=== PATIENT | female | born 1950 | race Caucasian/White ===

== ENCOUNTER 2020-07-16 10:21 | Outpatient (REF) | payer OTHER, SELFPAY ==
[2020-07-16 11:00] LABS: COVID-19 Test Negative (Negative); IDNOW Serial# 55D5AD1C
== END 2020-07-16 10:22 | disposition home or self-care (01) ==
LOC: HO.EMPCOV 10:21
PROVIDERS: PCP Internal Medicine; Visit Provider Internal Medicine
DX: Z20.828 Contact with and (suspected) exposure to other viral communicable diseases (principal)
CPT/HCPCS: 87635; C9803

== ENCOUNTER 2020-07-24 19:57 | Emergency (ER) | payer MEDICARE, SELFPAY ==
--- NOTE | 2020-07-24 | XR_ITS ---
EXAMINATION: 1. Radiographs right shoulder 2. Radiographs right wrist CLINICAL INFORMATION: Pain after fall COMPARISON: None TECHNIQUE: 4 views of the right shoulder and 3 views of the right wrist were obtained. FINDINGS: Right shoulder: Visualized portions of the proximal right humerus demonstrate no fracture. Humeral head demonstrates good articulation with the glenoid fossa. There are mild degenerative changes of the acromioclavicular joint. Visualized ribs and lung parenchyma are unremarkable. Right wrist: Visualized portion of the distal radius and ulna demonstrate no fracture. Carpal rows are well-maintained. No carpal bone fracture. Mild degenerative changes of the first carpal metacarpal joint. No metacarpal or phalangeal fracture. Moderate to severe degenerative changes of the DIP joints diffusely. The PIP and MCP joints demonstrate only minimal degenerative changes diffusely. XR/XR hand wrist RT IMPRESSION: 1. Mild degenerative changes of the right shoulder without fracture or dislocation. 2. No fracture of the right wrist or hand. 3. Moderate to severe degenerative changes of the DIP joints diffusely. Mild degenerative changes of the first carpal metacarpal joint is also noted.
--- NOTE | 2020-07-24 | XR_ITS ---
EXAMINATION: 1. Radiographs right shoulder 2. Radiographs right wrist CLINICAL INFORMATION: Pain after fall COMPARISON: None TECHNIQUE: 4 views of the right shoulder and 3 views of the right wrist were obtained. FINDINGS: Right shoulder: Visualized portions of the proximal right humerus demonstrate no fracture. Humeral head demonstrates good articulation with the glenoid fossa. There are mild degenerative changes of the acromioclavicular joint. Visualized ribs and lung parenchyma are unremarkable. Right wrist: Visualized portion of the distal radius and ulna demonstrate no fracture. Carpal rows are well-maintained. No carpal bone fracture. Mild degenerative changes of the first carpal metacarpal joint. No metacarpal or phalangeal fracture. Moderate to severe degenerative changes of the DIP joints diffusely. The PIP and MCP joints demonstrate only minimal degenerative changes diffusely. XR/XR shoulder RT min 2V IMPRESSION: 1. Mild degenerative changes of the right shoulder without fracture or dislocation. 2. No fracture of the right wrist or hand. 3. Moderate to severe degenerative changes of the DIP joints diffusely. Mild degenerative changes of the first carpal metacarpal joint is also noted.
[2020-07-24 20:41] VITALS: BP 119/84; PULSE 98; RESP 18; TEMP 36.7; O2SAT 99; BMI 32.9
--- NOTE | 2020-07-24 21:56 | ED.FALL ---
HPI - Fall General Chief Complaint: Fall Stated Complaint: Fall Time Seen by Provider: 07/24/20 21:51 Source: patient Mode of arrival: ambulatory Limitations: no limitations History of Present Illness complaint: fall Onset (ago): minute(s) (just [employer]) Fall from: standing Fall witnessed: yes, by family Place fall occurred: home Loss of consciousness: none Symptoms prior to fall: none Context: tripped/slipped Location of injury - extremities: right: shoulder and hand Severity: mild Quality: dull Associated symptoms (after fall): other (laceration on middle finger R hand anterior proximal phalanx) Related Data Previous Rx's Medication Instructions Recorded hydrocodone-acetaminophen 1 tab PO Q6H PRN #12 tab 07/24/20 Allergies Allergy/AdvReac Type Severity Reaction Status Date / Time penicillin V Allergy Unknown Unknown Verified 07/24/20 22:04 Penicillins [PENICILLINS] Allergy Unknown HIVES Verified 07/24/20 22:04 Cortisone Allergy Unknown sensitivity Uncoded 12/18/16 00:00 Review of Systems Review of Systems: Constitutional : No Fever, No Chills, Cardiovascular : No Chest Pain, No SOB Respiratory : No Dyspnea Gastrointestinal : No abdominal pain Musculoskeletal : No Joint Swelling, positive joint pain Skin : No rash, positive skin laceration Neuro : No Weakness, No Numbness Psych : No SI/HI PMFSH Past Medical History Attestation statement: The following information was validated with the patient. Medical History Arthritis High cholesterol Hypertension Hyperthyroidism Social History Social History (Updated 07/24/20 @ 22:01 by Jodie Gutierrez DO) Smoking Status: Never smoker Advance Directives: No Advance Directives Information Provided: Yes Physical Exam Vital Signs: Vital Signs: Last Vital Signs Temp 98.1 F 07/24/20 20:41 Pulse 98 07/24/20 20:41 Resp 18 07/24/20 20:41 BP 119/84 07/24/20 20:41 Pulse Ox 99 07/24/20 20:41 Body Mass Index 32.9 Appearance: Alert. Oriented X3. No acute distress. Eyes: Pupils equal, round and reactive to light. ENT: Pharynx normal. Neck: Normal inspection. Neck supple. CVS: Normal heart rate and rhythm. Pulses normal. Respiratory: No respiratory distress. Breath sounds normal. Abdomen: Soft and nontender. Skin: Skin warm and dry. Normal skin color. Normal skin turgor. Extremities: No lower extremity edema. No calf ttp Full ROM of RUE, laceration 3cm R middle finger superficial proximal phalanx, distal NV intact, very superficial Neuro: Oriented X 3. No motor deficit. No sensory deficit. Course Course Course Narrative: after ring removal and nerve block better ROM Procedures Laceration Laceration 1: Site: hand (middle finger) Side (If applicable): right Size (cm): 3 Description: linear Depth: simple, single layer Local Anesthetic: lidocaine 1% and lidocaine 2% Amount of anesthesia used (mL): 3 Pre-repair: wound explored and irrigated extensively Skin layer closed with: nylon Size (cm): 5-0 Number of sutures: 5 Technique: simple, interrupted MDM - Fall MDM Narrative Medical decision making narrative: 70 yo female with mechanical fall c/o MSk pain to RUE full ROM - has laceration that is superficial I do not think she has tendon injury she is R hand dominant will need ring removal as well Discharge Plan Discharge Clinical Impression: Laceration Strain of right shoulder Qualifiers: Encounter type: initial encounter Qualified Code(s): S46.911A - Strain of unspecified muscle, fascia and tendon at shoulder and upper arm level, right arm, initial encounter Patient Disposition: Home, Self-Care Instructions: Laceration (ED) Additional Instructions: return to ED for any worsening symptoms or concerns take splint off after 4 days it is to protect wound Prescriptions: New hydrocodone-acetaminophen 5-325 mg tablet 1 tab PO Q6H PRN (Reason: pain) Qty: 12 RF: 0 Referrals: Kayla Bliss MD [Physician] - 1 week (if finger feels stiff and limited mobility though no tendon injury evident) Stand Alone Forms: Work/School Release
[2020-07-24] MEDS: Lidocaine HCl 2 % MPF 5 ML VIAL SUBCUT (22:32)
== END 2020-07-24 22:46 | disposition home or self-care (01) ==
PROVIDERS: Emergency Provider Emergency Medicine; PCP Internal Medicine
DX: S61.212A Laceration without foreign body of right middle finger without damage to nail, initial encounter (principal); S46.911A Strain of unspecified muscle, fascia and tendon at shoulder and upper arm level, right arm, initial encounter; W01.0XXA Fall on same level from slipping, tripping and stumbling without subsequent striking against object, initial encounter; I10 Essential (primary) hypertension; Y93.89 Activity, other specified; Y92.010 Kitchen of single-family (private) house as the place of occurrence of the external cause; Y99.9 Unspecified external cause status
CPT/HCPCS: 12002; 73030; 73110; 73130; 90471; 90715; 99283; 99284

== ENCOUNTER 2020-09-13 15:24 | Outpatient (REF) | payer MEDICARE, SELFPAY ==
--- NOTE | ~2020-09-13 | MM_ITS ---
EXAMINATION: MM SCREENING DIGITAL BREAST TOMOSYNTHESIS, BILATERAL CLINICAL INFORMATION: Screening. Asymptomatic. The lifetime risk of breast cancer based on the Tyrer-Cuzick Model is 5%. COMPARISON: Mammography: 10/28/2018, 08/10/2017, 05/08/2016 TECHNIQUE: Digital breast tomosynthesis is performed in both the craniocaudal and mediolateral oblique views along with computer-aided detection (CAD). Synthesized 2D images are generated from the tomosynthesis. FINDINGS: There are scattered areas of fibroglandular density (ACR BI-RADS breast composition Category b). There are no significant masses, abnormal calcifications, or other abnormalities. Parenchymal pattern is similar to prior studies. No significant changes. MM/MM tomosynthesis screening BI IMPRESSION: No mammographic evidence of malignancy. ASSESSMENT: BI-RADS 1: Negative RECOMMENDATION: Routine annual mammography screening. This patient's information was entered into a reminder system with a target due date for their next mammogram.
== END 2020-09-13 15:25 | disposition home or self-care (01) ==
LOC: HO.MAMMO 15:24
PROVIDERS: PCP Internal Medicine; Visit Provider Internal Medicine
DX: Z12.31 Encounter for screening mammogram for malignant neoplasm of breast (principal)
CPT/HCPCS: 77063; 77067

== ENCOUNTER 2020-11-15 08:07 | Outpatient (REF) | payer OTHER, SELFPAY ==
[2020-11-15 08:28] LABS: COVID-19 Test Negative (Negative)
== END 2020-11-15 08:08 | disposition home or self-care (01) ==
LOC: HO.EMPCOV 08:07
PROVIDERS: Visit Provider Internal Medicine
DX: Z20.822 Contact with and (suspected) exposure to COVID-19 (principal)
CPT/HCPCS: 36415; 87635; C9803

== ENCOUNTER 2020-11-19 12:56 | Outpatient (REF) | payer OTHER, SELFPAY ==
[2020-11-19 13:29] LABS: COVID-19 Test Negative (Negative)
== END 2020-11-19 12:57 | disposition home or self-care (01) ==
LOC: HO.EMPCOV 12:56
PROVIDERS: Visit Provider Internal Medicine
DX: Z20.822 Contact with and (suspected) exposure to COVID-19 (principal)
CPT/HCPCS: 36415; 87635; C9803

== ENCOUNTER 2020-12-02 07:56 | Outpatient (REF) | payer MEDICARE, SELFPAY ==
[2020-12-02 11:28] LABS: Appearance Urine CLOUDY; Color Urine YELLOW; Glucose Urine UA NEG (NEG); Leukocyte Esterase Urine NEG (NEG); Nitrite Urine NEG (NEG); Specific Gravity - Urine >= 1.030 (1.005-1.025); Urine Blood NEG (NEG); Urine Ketones NEG (NEG); Urine Protein NEG (NEG-TRACE)
[2020-12-02 11:47] LABS: Hematocrit 43.8 % (37-47); Hemoglobin 14.6 g/dl (12.0-16.0); Mean Corpuscular HGB Conc 33.3 g/dl (31.0-35.0); Mean Corpuscular Hemoglobin 31.3 pg (27.0-33.0); Mean Corpuscular Volume 93.8 fL (80-98); Mean Platelet Volume 10.9 fL (9.4-12.3); Platelet Count 251 X10*3/uL (160-400); Red Blood Count 4.67 X10*6/uL (4.20-5.50); Red Cell Distribution Width 12.1 % (11.0-16.0); White Blood Count 5.5 X10*3/uL (4.8-10.8)
[2020-12-02 11:53] LABS: Alanine Aminotransferase 25 U/L (0-31); Albumin Level 4.3 g/dL (3.5-5.0); Alkaline Phosphatase 75 U/L (39-117); Anion Gap 14 (12-20); Aspartate Amino Transferase 21 U/L (5-31); Bilirubin Total 1.2 mg/dL (0.0-1.0); Blood Urea Nitrogen 25 mg/dL (9-16); C Reactive Protein 0.53 mg/dL (< or = 0.50); Calcium 9.7 mg/dL (8.4-10.2); Carbon Dioxide 29 mmol/L (22-29); Chloride 103 mmol/L (96-108); Cholesterol 200 mg/dL; Estimated Glomerular Filt Rate 60; Glucose Fasting 109 mg/dL (60-99); HDL Cholesterol 54 mg/dL; LDL Cholesterol Calculated 128 mg/dl; Potassium 4.3 mmol/L (3.3-5.1); Rheumatoid Factor < 15.0 IU/mL (<15.0); Sodium 142 mmol/L (135-145); Total Protein 6.9 g/dL (6.5-8.0); Triglycerides 94 mg/dL
[2020-12-02 12:15] LABS: Free T4 (Free Thyroxine) 0.98 ng/dL (0.71-1.85); Thyroid Stimulating Hormone 1.46 uIU/mL (0.32-4.0); Vitamin D 25-OH Total 28.5 ng/mL (>30)
[2020-12-05 13:46] LABS: Anti Nuclear Antibody Screen NEGATIVE (NEGATIVE)
== END 2020-12-02 07:57 | disposition home or self-care (01) ==
LOC: HO.HMGCLDS 07:56
PROVIDERS: PCP Internal Medicine; Visit Provider Internal Medicine
DX: Z00.00 Encounter for general adult medical examination without abnormal findings (principal); E78.00 Pure hypercholesterolemia, unspecified; I10 Essential (primary) hypertension; E03.9 Hypothyroidism, unspecified; M19.90 Unspecified osteoarthritis, unspecified site
CPT/HCPCS: 36415; 80053; 80061; 81003; 82306; 84439; 84443; 85027; 86038; 86039; 86140; 86431

== ENCOUNTER 2021-01-23 10:29 | Outpatient (REF) | payer MEDICARE, SELFPAY ==
--- NOTE | ~2021-01-23 | MM_ITS ---
EXAMINATION: BONE DENSITOMETRY CLINICAL INDICATION: Screening for osteoporosis. COMPARISON: Previous BD dated 11/15/2012 and baseline BD dated 05/16/2008. TECHNIQUE: Using a [employer] DXA System (software version: 13.1) manufactured by [employer], dual-energy x-ray absorptiometry was performed of the lumbar spine and left hip. The images are of good technical quality. Summary results are attached. FINDINGS: AP SPINE L1-L2 (excluding L3 and L4): The data of L1-L4 has been changed to exclude the L3 and L4 vertebral bodies, because degenerative sclerosis at these levels may cause overestimation of lumbar spine density. Current: BMD 1.004 g/cm2, Z-score -0.4, T-score -1.3, osteopenia, 8.3% increase from previous, 3.6% increase from baseline (<5% change is not significant). Prior: BMD 0.927 g/cm2. Baseline: BMD 0.969 g/cm2. LEFT FEMUR, NECK: Current: BMD 0.834 g/cm2, Z-score -0.2, T-score -1.5, osteopenia. Prior: BMD 0.898 g/cm2. Baseline: BMD 0.906 g/cm2. LEFT FEMUR, TOTAL: Current: BMD 0.877 g/cm2, Z-score -0.1, T-score -1.0, normal, 5.9% decrease from previous, 4.0% decrease from baseline (<5% change is not significant). Prior: BMD 0.932 g/cm2. Baseline: BMD 0.914 g/cm2. IDENTIFIED RISK FACTORS: Early menopause, secondary osteoporosis, thiazide. HISTORY OF FRACTURE: None listed. MEDICATIONS: Vitamin D. MM/XR DEXA axial skeleton IMPRESSION: 1. DIAGNOSIS: Osteopenia based on the lowest T-score value of -1.5 in the femoral neck applying World Health Organization criteria. 2. 10-YEAR FRACTURE RISK PREDICTION, FRAX: Major osteoporotic fracture (clinical spine, forearm, hip or shoulder) 9.0%. Hip fracture 1.2%. 3. Treatment Recommendations: NOF guidelines recommend consideration for treatment in postmenopausal women and men age 50 and older presenting with the following: -A hip or vertebral (clinical or morphometric) fracture. -T-score less than or equal to -2.5 at the femoral neck or spine after appropriate evaluation to exclude secondary causes. -Low bone mass at the hip or spine and a 10-year fracture probability by FRAX of greater than or equal to 3% for hip fracture or greater than or equal to 20% for major osteoporotic fracture based on the [place] adapted WHO algorithm. 4. Other Recommendations: All treatment decisions require clinical judgment and consideration of individual patient factors, including patient preferences, comorbidities, previous drug use, risk factors not captured in the FRAX model (e.g. frailty, falls, vitamin D deficiency, increased bone turnover, interval significant decline in bone density) and possible under or overestimation of fracture risk by FRAX. Additional medical evaluation for secondary cause of low bone mineral density may be appropriate. FUTURE SCAN RECOMMENDATION: People with diagnosed cases of osteoporosis or at high risk for fracture should have regular bone mineral density tests. For patients eligible for Medicare, routine testing is allowed once every 2 years. The testing frequency can be increased to one year for patients who have rapidly progressing disease, those who are receiving or discontinuing medical therapy to restore bone mass, or have additional risk factors.
== END 2021-01-23 10:30 | disposition home or self-care (01) ==
LOC: HO.MAMMO 10:29
PROVIDERS: Visit Provider Internal Medicine
DX: M81.8 Other osteoporosis without current pathological fracture (principal); Z78.0 Asymptomatic menopausal state; Z79.899 Other long term (current) drug therapy
CPT/HCPCS: 77080

== ENCOUNTER 2021-03-25 14:33 | Outpatient (REF) | payer MEDICARE, SELFPAY ==
[2021-03-25 15:17] LABS: Influenza A PCR NEGATIVE (Negative); Influenza B PCR NEGATIVE (Negative); Resp Syncy Virus RNA Qual PCR NEGATIVE (Negative); SARS COV2 PCR INHOUSE NEGATIVE (Negative)
== END 2021-03-25 14:34 | disposition home or self-care (01) ==
LOC: HO.LNP 14:33
PROVIDERS: Visit Provider Internal Medicine
DX: Z20.822 Contact with and (suspected) exposure to COVID-19 (principal); R50.9 Fever, unspecified; R53.83 Other fatigue; R19.7 Diarrhea, unspecified
CPT/HCPCS: 0241U

== ENCOUNTER 2021-04-01 10:01 | Outpatient (REF) | payer MEDICARE, SELFPAY ==
[2021-04-01 14:19] LABS: Anion Gap 14 (12-20); Blood Urea Nitrogen 19 mg/dL (9-16); Calcium 9.4 mg/dL (8.4-10.2); Carbon Dioxide 27 mmol/L (22-29); Chloride 103 mmol/L (96-108); Estimated Glomerular Filt Rate > 60; Glucose Random 113 mg/dL (60-115); Potassium 4.8 mmol/L (3.3-5.1); Sodium 139 mmol/L (135-145)
[2021-04-01 14:47] LABS: Free T4 (Free Thyroxine) 1.07 ng/dL (0.71-1.85); Thyroid Stimulating Hormone 1.63 uIU/mL (0.32-4.0); Vitamin D 25-OH Total 35.5 ng/mL (>30)
== END 2021-04-01 10:02 | disposition home or self-care (01) ==
LOC: HO.10HDL 10:01
PROVIDERS: Visit Provider Internal Medicine
DX: I12.9 Hypertensive chronic kidney disease with stage 1 through stage 4 chronic kidney disease, or unspecified chronic kidney disease (principal); N18.9 Chronic kidney disease, unspecified; E03.9 Hypothyroidism, unspecified; E55.9 Vitamin D deficiency, unspecified
CPT/HCPCS: 36415; 80048; 82306; 84439; 84443

== ENCOUNTER → 2021-07-09 11:46 | Outpatient (REF) | payer MEDICARE, SELFPAY ==
--- NOTE | 2021-07-09 11:55 | ECG_ITS ---
Test Reason : HTN Blood Pressure : / mmHG Vent. 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
== END ==
LOC: HO.CARD 11:46
PROVIDERS: PCP Internal Medicine; Visit Provider Orthopaedic Surgery Foot and Ankle Surgery
DX: Z01.812 Encounter for preprocedural laboratory examination (principal); I10 Essential (primary) hypertension; I21.19 ST elevation (STEMI) myocardial infarction involving other coronary artery of inferior wall
CPT/HCPCS: 93005

== ENCOUNTER 2021-10-17 10:03 | Outpatient (REF) | payer MEDICARE, SELFPAY ==
--- NOTE | ~2021-10-17 | MM_ITS ---
EXAMINATION: MM SCREENING DIGITAL BREAST TOMOSYNTHESIS, BILATERAL CLINICAL INFORMATION: Screening. Asymptomatic. The lifetime risk of breast cancer based on the Tyrer-Cuzick Model is 5%. COMPARISON: Mammography: 09/13/2020, 10/28/2018, 08/10/2017 TECHNIQUE: Digital breast tomosynthesis is performed in both the craniocaudal and mediolateral oblique views along with computer-aided detection (CAD). Synthesized 2D images are generated from the tomosynthesis. FINDINGS: There are scattered areas of fibroglandular density (ACR BI-RADS breast composition Category b). There are no significant masses, abnormal calcifications, or other abnormalities. There is no developing density or architectural abnormality. No significant changes. MM/MM tomosynthesis screening BI IMPRESSION: No mammographic evidence of malignancy. ASSESSMENT: BI-RADS 1: Negative RECOMMENDATION: Routine annual mammography screening. This patient's information was entered into a reminder system with a target due date for their next mammogram.
== END 2021-10-17 10:04 | disposition home or self-care (01) ==
LOC: HO.MAMMO 10:03
PROVIDERS: PCP Internal Medicine; Visit Provider Internal Medicine
DX: Z12.31 Encounter for screening mammogram for malignant neoplasm of breast (principal)
CPT/HCPCS: 77063; 77067

== ENCOUNTER 2022-07-28 11:43 | Outpatient (REF) | payer MEDICARE, SELFPAY ==
--- NOTE | ~2022-07-28 | XR_ITS ---
EXAMINATION: XR HIP, RIGHT CLINICAL INFORMATION: Right hip pain. COMPARISON: None TECHNIQUE: Two views of the right hip. FINDINGS: There is no acute fracture or dislocation. The right hip joint and visualized right hemipelvis are intact. Mild to moderate pubic symphysis degenerative joint changes are seen. XR/XR hip RT min 2V IMPRESSION: 1. No significant right hip abnormality.
== END 2022-07-28 11:44 | disposition home or self-care (01) ==
LOC: HO.XRAY 11:43
PROVIDERS: PCP Internal Medicine; Visit Provider Internal Medicine
DX: M25.551 Pain in right hip (principal)
CPT/HCPCS: 73502

== ENCOUNTER 2022-11-06 11:26 | Outpatient (REF) | payer MEDICARE, SELFPAY ==
--- NOTE | ~2022-11-06 | MM_ITS ---
EXAMINATION: MM SCREENING DIGITAL BREAST TOMOSYNTHESIS, BILATERAL CLINICAL INFORMATION: Screening. Asymptomatic. The lifetime risk of breast cancer based on the Tyrer-Cuzick Model is 3.7%. COMPARISON: Mammography: October 17, 2021 and studies dating back to May 08, 2016 TECHNIQUE: Digital breast tomosynthesis is performed in both the craniocaudal and mediolateral oblique views along with computer-aided detection (CAD). Synthesized 2D images are generated from the tomosynthesis. FINDINGS: There are scattered areas of fibroglandular density (ACR BI-RADS breast composition Category b). There are no significant masses, abnormal calcifications, or other abnormalities. MM/MM tomosynthesis screening BI IMPRESSION: No significant changes from prior exam. ASSESSMENT: BI-RADS 1: Negative RECOMMENDATION: Routine annual mammography screening. This patient's information was entered into a reminder system with a target due date for their next mammogram.
== END 2022-11-06 11:27 | disposition home or self-care (01) ==
LOC: HO.MAMMO 11:26
PROVIDERS: PCP Internal Medicine; Visit Provider Internal Medicine
DX: Z12.31 Encounter for screening mammogram for malignant neoplasm of breast (principal)
CPT/HCPCS: 77063; 77067

== ENCOUNTER 2023-08-31 10:26 | Day surgery (SDC) | payer MEDICARE, SELFPAY ==
[2023-08-27 11:41] VITALS: BMI 35.7
--- NOTE | 2023-08-30 09:27 | HO.ANESPROP2 ---
HPI - Anesthesia Eval Consult details Narrative: 73yo F for Upper Endoscopy and Colonoscopy PMFSH Past Medical History Medical History Hypothyroid Hiatal hernia Osteopenia IBS (irritable bowel syndrome) GERD (gastroesophageal reflux disease) Arthritis High cholesterol Hyperthyroidism Hypertension Surgical History Surgical History Hx of knee surgery Hx of repair of right rotator cuff History of esophagogastroduodenoscopy (EGD) H/O colonoscopy Social History Social History (Updated 08/27/23 @ 11:46 by Belgica Weiner RN) Patient Tobacco Use Status: Former Tobacco user Are you DNR?: No Advance Directives: No Advance Directives Information Provided: Yes Nutrition Risks: No Nutritional Risk Meds Allergies Allergy/AdvReac Type Severity Reaction Status Date / Time cortisone Allergy Intermediate sensitivity Verified 08/31/23 10:54 Penicillins [PENICILLINS] Allergy Intermediate Hives Verified 08/31/23 10:54 Home Medications Medication Instructions Recorded Confirmed Last Taken Type levothyroxine 25 mcg tablet 25 mcg PO DAILY 08/27/23 08/27/23 Unknown History lisinopril 10 1 tab PO DAILY 08/27/23 08/27/23 Unknown History mg-hydrochlorothiazide 12.5 mg tablet pantoprazole 40 mg tablet,delayed 40 mg PO BID 08/27/23 08/27/23 Unknown History release rosuvastatin 20 mg tablet 20 mg PO DAILY 08/27/23 08/27/23 Unknown History Exam Height,Weight and Vital Signs: Height 5 ft 1.5 in Weight 87.09 kg Assessment and Plan Assessment Anesthesia Assessment: Chart Reviewed
[2023-08-31 10:39] VITALS: BMI 35.7
[2023-08-31] MEDS: Lactated Ringers 1,000 ML 100 ML IVCONT (10:44)
[2023-08-31 10:55] VITALS: BP 158/81; PULSE 82; RESP 18; TEMP 36.6; O2SAT 96
--- NOTE | 2023-08-31 11:48 | P.HPSUR_ITS ---
Pre-Procedural Eval Section A - 24 Hr Update-Section A only Date of Service: 08/31/23 Section B - Complete if H&P > 30 days Chief Complaint: Gastro-esophageal reflux disease with esophagitis, Details of Present Illness: see H&P no changes Relevant Family History (Specify if Yes): No Relevant Social History: None Present Medications: see Short Stay Collaborative assessment Medical History: No relevant PMH Allergies: Allergies Allergy/AdvReac Type Severity Reaction Status Date / Time cortisone Allergy Intermediate sensitivity Verified 08/31/23 10:54 Penicillins [PENICILLINS] Allergy Intermediate Hives Verified 08/31/23 10:54 Review of Systems Sugical H&P ROS: Negative: Constitution, Cardiovascular, Respiratory, Neurological, Psychiatric, Hem-Onc, Allergic/Immunologic, Gastrointestinal, Genitourinary, Musculoskeletal, Integumentary, Endocrine and Eye s/Ears/Nose/Throat Exam Surgical H&P Exam: Normal: HEENT, Normal: Heart, Normal: Lungs, Normal: Extremities, Normal: Abdomen, Normal: Skin and Normal: Neurological Plan I have reviewed the history and physical and performed a pertinent physical examination on my patient. No changes have occurred unless specified. Time Spent With Patient Time: Total time managing care of this patient today ____ minutes.
[2023-08-31 12:41] VITALS: BP 125/58; PULSE 65; RESP 20; TEMP 36.2; O2SAT 98
[2023-08-31 12:56] VITALS: BP 135/70; PULSE 69; RESP 18; O2SAT 99
[2023-08-31 13:11] VITALS: BP 130/68; PULSE 68; RESP 16; TEMP 36.6; O2SAT 99
--- NOTE | 2023-08-31 13:15 | OP_ITS ---
DATE OF SERVICE: 08/31/2023 SURGEON: Danny Anna MD INDICATIONS: 1. Gastroesophageal reflux disease. 2. Colorectal cancer screening. PREOPERATIVE DIAGNOSIS: POSTOPERATIVE DIAGNOSIS: PROCEDURE PERFORMED: Upper endoscopy with biopsy, colonoscopy to the terminal ileum with biopsy. ESTIMATED BLOOD LOSS: COMPLICATIONS: ANESTHESIA: Monitored anesthesia care. ASSISTANTS: SPECIMENS: DESCRIPTION OF PROCEDURE: A history and physical was performed. The risks and benefits of the procedure were explained to the patient. Informed consent was obtained. The patient was placed in the left lateral decubitus position. The Olympus video gastroscope was introduced into the esophagus, stomach, and duodenum. Examination was performed. The scope was removed. She was repositioned for colonoscopy. A digital rectal exam was performed and was found to be normal. The Olympus pediatric video colonoscope was introduced into the rectum and advanced to the cecum. The cecum was identified by transillumination, palpation, and identification of ileocecal valve. Examination was performed. The scope was removed. She tolerated both procedures well, returned to recovery area in stable condition. FINDINGS: Upper endoscopy: 1. Esophagus the esophagus was normal. There was no esophagitis. The EG junction was slightly irregular. This was biopsied. 2. Stomach: The stomach showed no evidence of masses, ulcers, or polyps. Antral biopsies were obtained to evaluate for H pylori. 3. Duodenum: The bulb and 2nd portion were normal. Colonoscopy: The terminal ileum was examined and appeared normal. The visualized colonic mucosa was normal. The quality of the prep was good. There was a single polyp measuring less than 5 mm, which was removed with biopsy forceps. This was located in the cecum. No other polyps were identified. There was moderate diverticulosis, particularly involving the sigmoid. Retroflexed examination showed small internal hemorrhoids. IMPRESSION: 1. Gastroesophageal reflux disease. 2. Colon polyp. RECOMMENDATION: Follow up the biopsy results. MD TSERING Beckett/LELANDL / [id number]
== END 2023-08-31 13:58 | disposition home or self-care (01) ==
PROVIDERS: PCP Nurse Practitioner Family; Visit Provider Internal Medicine Gastroenterology
PROC: (CPT 45380; principal; 2023-08-31 11:50)
DX: Z12.11 Encounter for screening for malignant neoplasm of colon (principal); K57.30 Diverticulosis of large intestine without perforation or abscess without bleeding; K64.8 Other hemorrhoids; K21.9 Gastro-esophageal reflux disease without esophagitis; E03.9 Hypothyroidism, unspecified; E78.00 Pure hypercholesterolemia, unspecified; K44.9 Diaphragmatic hernia without obstruction or gangrene; K58.9 Irritable bowel syndrome, unspecified; I10 Essential (primary) hypertension; M85.80 Other specified disorders of bone density and structure, unspecified site; E05.90 Thyrotoxicosis, unspecified without thyrotoxic crisis or storm; Z79.899 Other long term (current) drug therapy; Z88.0 Allergy status to penicillin; Z87.891 Personal history of nicotine dependence
CPT/HCPCS: 45380; 43239; 88305; 88313; 88342; J2704

== ENCOUNTER 2023-12-21 06:34 | Day surgery (SDC) | payer MEDICARE, SELFPAY ==
[2023-12-16 13:59] VITALS: BMI 34.9
--- NOTE | 2023-12-17 10:07 | HO.ANESPROP2 ---
HPI - Anesthesia Eval Consult details Narrative: 73yo F for Upper Endoscopy s/p egd and colo 08/2023 with [facility] PMFSH Past Medical History Medical History Hypothyroid Hiatal hernia Osteopenia IBS (irritable bowel syndrome) GERD (gastroesophageal reflux disease) Arthritis High cholesterol Hyperthyroidism Hypertension Surgical History Surgical History Hx of knee surgery Hx of repair of right rotator cuff History of esophagogastroduodenoscopy (EGD) H/O colonoscopy Social History Social History Patient Tobacco Use Status: Former Tobacco user Meds Allergies Allergy/AdvReac Type Severity Reaction Status Date / Time cortisone Allergy Intermediate sensitivity Verified 08/31/23 10:54 Penicillins [PENICILLINS] Allergy Intermediate Hives Verified 08/31/23 10:54 Home Medications ?Medication ?Instructions ?Recorded ?Confirmed ?Last Taken ?Type levothyroxine 25 mcg tablet 25 mcg PO DAILY 08/27/23 12/16/23 Unknown History lisinopril 10 1 tab PO DAILY 08/27/23 12/16/23 Unknown History mg-hydrochlorothiazide 12.5 mg tablet pantoprazole 40 mg tablet,delayed 40 mg PO BID 08/27/23 12/16/23 Unknown History release rosuvastatin 20 mg tablet 20 mg PO DAILY 08/27/23 12/16/23 Unknown History Exam Height,Weight and Vital Signs: Height 5 ft 1.5 in Weight 85.275 kg Assessment and Plan Assessment Anesthesia Assessment: Chart Reviewed
[2023-12-21 06:38] VITALS: BP 124/60; PULSE 74; RESP 18; TEMP 36.1; O2SAT 97; BMI 34.6
[2023-12-21] MEDS: Lactated Ringers 1,000 ML 100 ML IVCONT (07:02)
[2023-12-21 07:55] VITALS: BP 117/67; PULSE 65; RESP 16; TEMP 36.1; O2SAT 95
--- NOTE | 2023-12-21 07:58 | P.HPSUR_ITS ---
Pre-Procedural Eval Section A - 24 Hr Update-Section A only Date of Service: 12/21/23 Section B - Complete if H&P > 30 days Chief Complaint: Gastric intestinal metaplasia, unspecified Details of Present Illness: see H&P no c hanges Relevant Family History (Specify if Yes): No Relevant Social History: None Present Medications: see Short Stay Collaborative assessment Medical History: No relevant PMH Allergies: Allergies Allergy/AdvReac Type Severity Reaction Status Date / Time cortisone Allergy Intermediate sensitivity Verified 08/31/23 10:54 Penicillins [PENICILLINS] Allergy Intermediate Hives Verified 08/31/23 10:54 Review of Systems Sugical H&P ROS: Negative: Constitution, Cardiovascular, Respiratory, Neurological, Psychiatric, Hem-Onc, Allergic/Immunologic, Gastrointestinal, Genitourinary, Musculoskeletal, Integumentary, Endocrine and Eyes/Ears/ Nose/Throat Exam Surgical H&P Exam: Normal: HEENT, Normal: Heart, Normal: Lungs, Normal: Extremities, Normal: Abdomen, Normal: Skin and Normal: Neurological Plan Diagnosis/Plan: Unchanged I have reviewed the history and physical and performed a pertinent physical examination on my patient. No changes have occurred unless specified. Time Spent With Patient Time: Total time managing care of this patient today ____ minutes.
--- NOTE | 2023-12-21 07:59 | P.CONAN_ITS ---
[facility] Past Medical History Medical History Hypothyroid Hiatal hernia Osteopenia IBS (irritable bowel syndrome) GERD (gastroesophageal reflux disease) Arthritis High cholesterol Hyperthyroidism Hypertension Functional capacity: independent ambulation Patient : No Family History Family history of problems with anesthesia: No Surgical History Surgical History Hx of knee surgery Hx of repair of right rotator cuff History of esophagogastroduodenoscopy (EGD) H/O colonoscopy History of Problems with Anesthesia: No Social History Social History Patient Tobacco Use Status: Former Tobacco user Are you DNR?: No Advance Directives: No Advance Directives Information Provided: Yes Nutrition Risks: No Nutritional Risk Meds Allergies Allergy/AdvReac Type Severity Reaction Status Date / Time cortisone Allergy Intermediate sensitivity Verified 08/31/23 10:54 Penicillins [PENICILLINS] Allergy Intermediate Hives Verified 08/31/23 10:54 Active Medications: Current Medications Lactated Ringer's (Lr) 1,000 mls @ 100 mls/hr IVCONT .Q10H QUYNH Last Admin: 12/21/23 07:02 Dose: 100 mls/hr Home Medications ?Medication ?Instructions ?Recorded ?Confirmed ?Last Taken ?Type levothyroxine 25 mcg tablet 25 mcg PO DAILY 08/27/23 12/16/23 Unknown History lisinopril 10 1 tab PO DAILY 08/27/23 12/16/23 Unknown History mg-hydrochlorothiazide 12.5 mg tablet pantoprazole 40 mg tablet,delayed 40 mg PO BID 08/27/23 12/16/23 Unknown History release rosuvastatin 20 mg tablet 20 mg PO DAILY 08/27/23 12/16/23 Unknown History Exam Height,Weight and Vital Signs: Height 5 ft 1.5 in Weight 84.504 kg Last Vital Signs Temp 97 F 12/21/23 06:38 Pulse 74 12/21/23 06:38 Resp 18 12/21/23 06:38 BP 124/60 12/21/23 06:38 Pulse Ox 97 12/21/23 06:38 O2 Del Method Room Air 12/21/23 06:38 Airway Mallampati Class: IV TM Dist: >3cm Neck ROM: Full Heart: RRR Lungs: CTA Assessment and Plan Assessment Anesthesia Assessment: Anesthesia Plan Discussed Final Anesthetic Review Family History of Problems with Anesthesia: No History of Problems with Anesthesia: No ASA Class: III Final Preanesthetic Review: Meds/Allgs Chart Reviewed, Consent Obtained/Reviewed and Anes Risks/Benef Reviewed Patient Risk: Intermediate Procedure Risk: Low Anesthetic Plan Anesthetic Plan: MAC: Disposition: Standard PACU
[2023-12-21 08:10] VITALS: BP 146/75; PULSE 63; RESP 16; O2SAT 96
--- NOTE | 2023-12-21 08:16 | OP_ITS ---
DATE OF SERVICE: 12/21/2023 SURGEON: Danny Anna MD INDICATIONS: Gastric intestinal metaplasia. PREOPERATIVE DIAGNOSIS: POSTOPERATIVE DIAGNOSIS: PROCEDURE PERFORMED: Upper endoscopy with biopsy. ESTIMATED BLOOD LOSS: COMPLICATIONS: ANESTHESIA: Monitored anesthesia care. ASSISTANTS: SPECIMENS: DESCRIPTION OF PROCEDURE: A history and physical were performed. The risks and benefits of the procedure were explained to the patient. Informed consent was obtained. The patient was placed in the left lateral decubitus position. The Olympus video gastroscope was introduced into the esophagus, stomach, and duodenum. Examination was performed and the scope was removed. She tolerated the procedure well and was taken to recovery room in stable condition. FINDINGS: Esophagus: The esophagus was normal. There was a small sliding hiatal hernia. Stomach: The stomach showed no evidence of masses, ulcers, or polyps. No raised lesions or inflamed areas were identified endoscopically. Biopsies were obtained from throughout the stomach because of the patient's history of gastric intestinal metaplasia. Duodenum: The bulb and 2nd portion were normal. IMPRESSION: Gastric intestinal metaplasia. RECOMMENDATION: Follow up the biopsy results. MD TSERING Beckett/MYLENE / [id number]
[2023-12-21 08:25] VITALS: BP 127/75; PULSE 62; RESP 16; TEMP 36.1; O2SAT 96
--- NOTE | 2023-12-21 09:46 | HO.POSTANES ---
Post Anesthesia Evaluation Post Anesthesia Evaluation Date of Service: 12/21/23 Vital Signs: Vital Signs Temp Pulse Resp BP Pulse Ox O2 Del Method 12/21/23 08:25 97 F 62 16 127/75 96 Room Air 12/21/23 08:10 63 16 146/75 H 96 Room Air 12/21/23 07:55 97 F 65 16 117/67 95 Room Air 12/21/23 06:38 97 F 74 18 124/60 97 Room Air Anesthesia: Monitored Mental Status: Awake Pain Control: Satisfactory Nausea/Vomiting: None Hydration: Adequate Anesthesia-Related Issues: No Anes. Related Issues
== END 2023-12-21 08:40 | disposition home or self-care (01) ==
PROVIDERS: PCP Nurse Practitioner Family; Visit Provider Internal Medicine Gastroenterology
PROC: 0DJ08ZZ Inspection of Upper Intestinal Tract, Via Natural or Artificial Opening Endoscopic (ICD-10-PCS; CPT 43235; principal; 2023-12-21 07:30)
DX: K31.A0 Gastric intestinal metaplasia, unspecified (principal); K21.9 Gastro-esophageal reflux disease without esophagitis; I10 Essential (primary) hypertension; Z88.0 Allergy status to penicillin; Z88.8 Allergy status to other drugs, medicaments and biological substances
CPT/HCPCS: 43239; 88305; 88313; 88342; J2704

== ENCOUNTER 2023-12-28 10:10 | Outpatient (REF) | payer MEDICARE, SELFPAY ==
--- NOTE | ~2023-12-28 | MM_ITS ---
EXAMINATION: MM SCREENING DIGITAL BREAST TOMOSYNTHESIS, BILATERAL CLINICAL INFORMATION: Screening. Asymptomatic. Daughter with breast cancer age 44 as per technologist note. COMPARISON: Mammography: 11/06/2022, 10/17/2021, 09/13/2020, 10/28/2018, 08/10/2017. TECHNIQUE: Digital breast tomosynthesis is performed in both the craniocaudal and mediolateral oblique views along with computer-aided detection (CAD). Synthesized 2D images are generated from the tomosynthesis. FINDINGS: There are scattered areas of fibroglandular density (ACR BI-RADS breast composition Category b). There are bilateral vascular and benign type calcifications. These are unchanged. In the left breast, slightly lateral retroareolar region, mid to anterior one third, there is a 1 view very subtle asymmetry seen on the MLO view, with a possible correlate on the left CC view. Given appearances, this is most likely superimposition artifact. Recommend diagnostic views. Otherwise, no additional suspicious findings in either breast. Parenchymal pattern is otherwise stable. No skin or axillary abnormalities. MM/MM tomosynthesis screening BI IMPRESSION: -One view subtle asymmetry seen LEFT MLO view lateral retroareolar region with possible CC correlate. Recommend small paddle spot compression views CC and MLO projections, and a full-field left ML view, with ultrasound to follow if necessary. -No suspicious findings RIGHT breast. ASSESSMENT: BI-RADS BI-RADS 0 - Incomplete: Needs additional Imaging. RECOMMENDATION: 1. Additional views of the LEFT breast. 2. Targeted ultrasound if warranted after review of the additional views. 3. Radiology department staff will contact the patient for additional imaging. Additional Imaging required This examination should not preclude the clinical evaluation of a suspicious palpable abnormality. This patient's information was entered into a reminder system with a target due date for their next mammogram.
== END 2023-12-28 10:11 | disposition home or self-care (01) ==
LOC: HO.MAMMO 10:10
PROVIDERS: PCP Nurse Practitioner Family; Visit Provider Nurse Practitioner Family
DX: Z12.31 Encounter for screening mammogram for malignant neoplasm of breast (principal)
CPT/HCPCS: 77063; 77067

== ENCOUNTER → 2023-12-28 10:15 | Outpatient (BNV) | payer MEDICARE, SELFPAY | PROVIDERS: PCP Nurse Practitioner Family; Visit Provider Radiology Diagnostic Radiology | DX: Z12.31 Encounter for screening mammogram for malignant neoplasm of breast (principal) | CPT/HCPCS: 77063; 77067 ==

== ENCOUNTER 2024-01-04 13:59 | Outpatient (REF) | payer MEDICARE, SELFPAY ==
--- NOTE | ~2024-01-04 | MM_ITS ---
EXAMINATION: MM DIAGNOSTIC DIGITAL BREAST TOMOSYNTHESIS, LEFT US BREAST LIMITED, LEFT MAMMOGRAPHY: CLINICAL INFORMATION: Diagnostic call back for one view subtle asymmetry LEFT breast just lateral to the areola in the MLO projection only, with questionable correlate on the left CC view. COMPARISON: Mammography: Screening mammography 12/28/2023, 11/06/2022, and dating back to 08/10/2017. TECHNIQUE: Digital left breast tomosynthesis is performed in the following views: Full-field left 3-D mediolateral view, as well as 3-D spot compression left CC view, and left MLO view x2. This was followed by diagnostic left breast ultrasound. FINDINGS: -There are scattered areas of fibroglandular density (ACR BI-RADS breast composition Category b). -The subtle asymmetry in the anterior left breast just lateral to the areola appears to persist on spot compression views. This will be evaluated with diagnostic left ultrasound. -Otherwise, there are stable vascular and benign type scattered calcifications. No new suspicious findings in the left breast. ULTRASOUND: CLINICAL INFORMATION: As above. COMPARISON: None. TECHNIQUE: Targeted sonographic evaluation was performed using a high frequency linear transducer. Selected archived documentation. FINDINGS: LEFT BREAST: Images demonstrate a dilated anechoic duct 9:00 axis of the left breast, correlating and explaining the asymmetry seen on mammography. This finding is benign. There is no intraductal mass or intraductal echo. Otherwise no masses, abnormal shadowing, or additional cystic findings, or architectural distortion identified. MM/MM tomosynthesis added views L IMPRESSION: -Benign findings left breast as described above related to a dilated duct in the 9:00 retroareolar region. No findings suspicious for malignancy. -Recommend this patient return to routine annual screening. OVERALL ASSESSMENT: Mammography: BI-RADS 2 - Benign Findings Ultrasound: BI-RADS 2 - Benign Findings RECOMMENDATION: 1 year F/U This patient's information was entered into a reminder system with a target due date for their next mammogram.
== END 2024-01-04 14:00 | disposition home or self-care (01) ==
LOC: HO.MAMMO 13:59
PROVIDERS: PCP Nurse Practitioner Family; Visit Provider Nurse Practitioner Family
DX: R92.8 Other abnormal and inconclusive findings on diagnostic imaging of breast (principal)
CPT/HCPCS: 76642; 77061; 77065

== ENCOUNTER → 2024-01-04 14:30 | Outpatient (BNV) | payer MEDICARE, SELFPAY | PROVIDERS: PCP Nurse Practitioner Family; Visit Provider Radiology Diagnostic Radiology | DX: R92.8 Other abnormal and inconclusive findings on diagnostic imaging of breast (principal) | CPT/HCPCS: 76642; 77065; G0279 ==

== ENCOUNTER 2025-01-08 23:10 | Emergency (ER) | payer MEDICARE, SELFPAY ==
[2025-01-08 23:13] VITALS: BP 151/84; PULSE 85; RESP 18; TEMP 37; O2SAT 95; BMI 36.5
--- NOTE | 2025-01-09 00:30 | ED_ITS ---
HPI - Dental/Oral General Chief complaint: Dental/Oral Stated complaint: headache over 2 days Time Seen by Provider: 01/09/25 00:17 Source: patient Mode of arrival: ambulatory Limitations: no limitations History of Present Illness ED Provider: HPI Narrative: Patient is presenting with oropharyngeal pain, went to see a dentist currently taking clindamycin x1 day, has been using Aleve, feels pain in the left side of the face, left part of the neck, throat ear, has not been able to sleep no fevers or chills, able to tolerate liquids and control her own secretions. Related Data Home Medications ?Medication ?Instructions ?Recorded ?Confirmed levothyroxine 25 mcg tablet 25 mcg PO DAILY 08/27/23 12/16/23 lisinopril 10 1 tab PO DAILY 08/27/23 12/16/23 mg-hydrochlorothiazide 12.5 mg tablet pantoprazole 40 mg tablet,delayed 40 mg PO BID 08/27/23 12/16/23 release rosuvastatin 20 mg tablet 20 mg PO DAILY 08/27/23 12/16/23 Previous Rx's ?Medication ?Instructions ?Recorded oxycodone 5 mg tablet 5 mg PO Q6H PRN pain 2 days #10 01/09/25 tabs Allergies Allergy/AdvReac Type Severity Reaction Status Date / Time cortisone Allergy Intermediate sensitivity Verified 01/08/25 23:17 Penicillins [PENICILLINS] Allergy Intermediate Hives Verified 01/08/25 23:17 Review of Systems Constitutional: Constitutional: Reports as per [facility] Past Medical History Medical History Hypothyroid Hiatal hernia Osteopenia IBS (irritable bowel syndrome) GERD (gastroesophageal reflux disease) Arthritis High cholesterol Hyperthyroidism Hypertension Surgical History Hx of knee surgery Hx of repair of right rotator cuff History of esophagogastroduodenoscopy (EGD) H/O colonoscopy Social History Social History Patient Tobacco Use Status: Former Tobacco user Physical Exam Vital Signs: Vital Signs: Last Vital Signs Temp 98.6 F 01/08/25 23:13 Pulse 85 01/08/25 23:13 Resp 18 06/16/25 23:13 BP 151/84 H 01/08/25 23:13 Pulse Ox 95 01/08/25 23:13 O2 Del Method Room Air 01/08/25 23:13 BMI result Body Mass Index 36.5 Const: Other: * Gen: ?Overall well-appearing patient * HEENT: PERRLA, EOMI, MMM, patient has positive Tinel sign over the left upper molar, uvula midline, no tonsillar exudates, no throat injection, tympanic membranes visible bilaterally without erythema, * Neck: Supple, no LAD * Resp: ?No wheezing rales rhonchi no stridor moving air well * Skin: Warm, dry, intact, * Neuro: ?Alert and oriented x3, moving upper and lower extremities symmetrically, no obvious facial asymmetry noted Medical Decision Making Medical Decision Making MDM Narrative: Patient is presenting with dental pain, offered dental injection she declined we will give her some pain medications, ENT examination without any evidence for peritonsillar abscess, tonsillitis, otitis media, or sinusitis, neck exam unremarkable without any fullness or hardness to suspect pus collection in the anterior neck structures. Differential Diagnosis Differential Diagnoses: The differential diagnosis associated with the presentation includes Dental pain, Emile's angina, peritonsillar abscess, tonsillitis, acute otitis media, deep space infection of the neck Discharge Plan Discharge Clinical Impression: Dental abscess Patient Disposition: Home, Self-Care Additional Instructions: Please take Tylenol 975 mg every 6 hours with additional of ibuprofen 400 mg every 6 hours round the clock for the next 2 days, oxycodone 5 mg every 4-6 hours if needed for pain, and swish and spit either chlorhexidine mouthwash or cup of 1 water with tsp of baking soda on tsp of salt and just swish and spit throughout the day. Follow up with your dentist, inability to swallow your own spit or liquids come back to the ER, as discussed on physical examination today I did not see any infection in your ears, your throat did not reveal any evidence of infection, we had tenderness right over your left upper molar without any drainage. Prescriptions: New oxycodone 5 mg tablet 5 mg PO Q6H PRN (Reason: pain) 2 Days Qty: 10 0RF Rx Instructions: Partial Fill upon patient request. No Action levothyroxine 25 mcg Tablet 25 mcg PO DAILY pantoprazole 40 mg Tablet,Delayed Release (Dr/Ec) 40 mg PO BID lisinopril-hydrochlorothiazide 10-12.5 mg Tablet 1 tab PO DAILY rosuvastatin 20 mg Tablet 20 mg PO DAILY Print Language: Swedish
[2025-01-09] MEDS: Ketorolac Tromethamine 15 MG/ML VIAL IM (00:54)
[2025-01-09] MEDS: Acetaminophen 325 MG TABLET 975 MG PO (00:54)
[2025-01-09] MEDS: oxyCODONE HCl Immed Release 5 MG TABLET PO (00:55)
[2025-01-09 00:58] VITALS: BP 155/84; PULSE 86; RESP 18; TEMP 36.9; O2SAT 94
== END 2025-01-09 01:00 | disposition home or self-care (01) ==
LOC: HO.ED 01-09 00:51
PROVIDERS: Emergency Provider Emergency Medicine; PCP Student in an Organized Health Care Education/Training Program
DX: K04.7 Periapical abscess without sinus (principal)
CPT/HCPCS: 96372; 99283; 99284; J1885

== ENCOUNTER 2025-01-10 21:04 | Emergency (ER) | payer MEDICARE, SELFPAY ==
--- NOTE | ~2025-01-10 | CT_ITS ---
CLINICAL HISTORY: infection CT maxillofacial with contrast Comparison: None Findings: There is fluid within the maxillary sinuses. There is left maxillary sinus mucosal thickening. There is minimal fluid in the left anterior ethmoid air cells. Frontal and sphenoid sinuses are clear. Mastoids are clear. There is no bone erosion. There is no abscess. Orbits are unremarkable. IMPRESSION: Fluid and mucosal thickening primarily in the maxillary sinuses suggestive of sinusitis. This document has been electronically signed by: Aayush Partida MD on 01/11/2025 03:03:20
[2025-01-10 21:10] VITALS: BP 159/75; PULSE 88; RESP 20; TEMP 36; O2SAT 95; BMI 34.0
--- OUTSIDE RECORDS SUMMARY | 2025-01-10 23:01 | XMS_ITS | Patient Health Record ---
[facility] Address [address] [place] [address] Care Team Providers Care Electronic Heat Seal Operator Name Role Phone Kurt Moffett MD Primary Care Provider Adrian Pastrana Unavailable [phone] Allergies Allergen (clinical drug ingredient) Drug/Non Drug Allergy documented on EMR Reaction Allergy Type Onset Date Status Penicillin G Benzathine Unknown Drug Allergy Active Cortisone Unknown Drug Allergy Active Reason For Referral No Information Medications Medication SIG (Take, Route, Frequency, Duration) Notes Start Date End Date Status Vitamin D 5000 iu 3x/week Not- Taking Simvastatin 20 MG Orally Ac tive Lisinopril 10-12.5mg Active Levothyroxine Sodium 25 MCG Orally Active Pantoprazole Sodium 40 MG Orally Active Immunizations Vaccine Route Administration Date Status Comme nts COVID-19 Pfizer BioNTech Vaccine Unknown 04/25/2021 Administered 2020 unsure dates Social History Tobacco Use: Social History Observation Description Date Details (start date - stop date) Former Smoker NA - NA Tobacco Use/Smoking Question Answer Notes Are you a: former smoker Additional Findings: Tobacco Non-User Current no n-smoker Alcohol Screen Question Answer Notes Did you have a drink containing alcohol in the p ast year? Yes Points 0 Interpretation Negative Tobacco use other than smoking: Question Answer Notes Are you an other tobacco user? No Problems Problem Type SNOMED Code ICD Code Onset Dates Problem Status W/U Status Risk Notes Problem Localized, primary osteoarthritis of the ankle and/or foot (799781564) Primary osteoarthriti s, right ankle and foot (M19.071) Active confirmed Problem Localized, primary osteoarthritis of the ankle and/or foot (862798487) Primary osteoarthriti s, left ankle and foot (M19.072) Active confirmed Problem Non-pressure chronic ulcer of other part of right foot limited to breakdown of skin (L97.511) Active confirmed Plan Of Treatment Pending Test Test Name Order Date X ray : Foot, right 3V 11/14/2018 Insurance Providers Payer Name Payer Address Payer Phone Subscriber Number Group Number Insured Name Patient Relationship to Insured Coverage Start Date Coverage End Date Medicare National [employer] [address] [facility] [address] [id number] Lou Root Self - patient is the insured [employer] [address] [place] [address] [phone] [id number] Lou Root Self - patient is the insured Medical (General) History Medical History History ICD Code osteoarthritis Hypertension thyroid Measles Mumps Chicken pox covid-19 Surgical History Surgery Date(Month/Year) right rotator cuff 2008 left knee arthroscopy 2015
[2025-01-11 01:06] VITALS: BP 164/80; PULSE 76; RESP 16; TEMP 37; O2SAT 97
[2025-01-11] MEDS: Ketorolac Tromethamine 15 MG/ML VIAL IVPUSH (01:39)
[2025-01-11] MEDS: iohexoL 350 MG/ML 100 ML INFUS..BTL 85 ML IV (01:52)
--- NOTE | 2025-01-11 03:12 | ED_ITS ---
HPI - General Adult General Chief complaint: Dental/Oral Stated complaint: headache Time Seen by Provider: 01/11/25 00:31 Source: patient Limitations: no limitations History of Present Illness ED Provider: Belgica Gregorio PA-C HPI narrative: 74-year-old female currently be treated for known dental abscess, with a history of hypothyroidism, hypertension, hyperlipidemia who presents with facial pain and headache x 4 days. Patient when seen in the emergency department 4 days ago for her dental pain, she was prescribed clindamycin. Her symptoms have progressed, she is having sinus pain and pressure, nasal congestion, postnasal drip and sore throat. Patient has pending tooth extraction scheduled for tomorrow. Denies fever. Related Data Home Medications ?Medication ?Instructions ?Recorded ?Confirmed levothyroxine 25 mcg tablet 25 mcg PO DAILY 08/27/23 0 12/16/23 lisinopril 10 1 tab PO DAILY 08/27/2311/24 mg-hydrochlorothiazide 12.5 mg tablet pantoprazole 40 mg tablet,delayed 40 mg PO BID 4 12/16/23 release rosuvastatin 20 mg tablet 20 mg PO DAILY 08/27/2311/24 Previous Rx's ?Medication ?Instructions ?Recorded oxycodone 5 mg tablet 5 mg PO Q6H PRN pain 2 days #10 01/09/25 tabs doxycycline hyclate 100 mg capsule 100 mg PO BID #19 c aps 01/11/25 ketorolac 10 mg tablet 10 mg PO Q8H PRN pain #20 ta bs 01/11/25 Allergies Allergy/AdvReac Type Severity Reaction Status Date / Time cortisone Allergy Intermediate sensitivity Verified 01/10/25 21:12 Penicillins (PENICILLINS) Allergy Intermediate Hives Verified 01/10/25 21:12 Review of Systems Review of Systems: Yes all other systems are reviewed and are negative Constitutional: Constitutional: Denies fatigue, Denies fever(s) and Reports headache(s) ENT: Reports facial pain, Reports headache(s), Reports post nasal drip, Reports sinus pain, Reports sinus pressure and Reports sore throat Neurologic: Reports headache(s) Endocrine: Endocrine: Denies fatigue PMFSH Past Medical History Attestation statement: The following information was validated with the patient. Medical History Hypothyroid Hiatal hernia Osteopenia IBS (irritable bowel syndrome) GERD (gastroesophageal reflux disease) Arthritis High cholesterol Hyperthyroidism Hypertension Surgical History Hx of knee surgery Hx of repair of right rotator cuff History of esophagogastroduodenoscopy (EGD) H/O colonoscopy Social History Social History Patient Tobacco Use Status: Former Tobacco user Advance Directives: Yes Advance Directives Information Provided: Yes Advance Directives on File: No Physical Exam ED Vital Signs: Vital Signs - 24 hr 01/10/25 21:10 01/11/25 01:06 01/11/25 03:50 Temperature 96.8 F 98.6 F 98.2 F Pulse Rate 88 76 89 Respiratory Rate 20 16 16 Blood Pressure 159/75 H 164/80 H 150/83 H Pulse Oximetry 95 97 98 Oxygen Delivery Method Room Air Room Air Room Air BMI result Body Mass Index 34.0 Const Other: Alert, sounds congested bowel speaking Orientation/consciousness: patient oriented x3 HENMT Other: Bilateral TMs are dull without overlying erythema or exudate, cerumen noted in bilateral ear canals, no tragal tenderness bilaterally. Oropharynx is mildly erythematous Resp Effort & Inspection: normal respiratory effort Cardio Other: Normal peripheral perfusion Skin Other: Warm dry no rash Neuro General: patient oriented x3, gait normal, no focal motor deficits and CN's II- XI intact bilaterally Psych Other: Cooperative Medications Administered Discontinued Medications Generic Name Dose Route Start Last Admin Trade Name Freq PRN Reason Stop Dose Admin Doxycycline Monohydrate 100 mg 01/11/25 03:18 01/11/25 03:43 Doxycycline Monohydrate 100 Mg Capsule PO 01/11/25 03:19 100 mg ONCE ONE Administration Iohexol 85 ml 01/11/25 01:52 01/11/25 01:52 Iohexol 350 Mg/Ml 100 Ml Infus..Btl IV 01/11/25 01:53 85 ml ONCE ONE Administration Ketorolac Tromethamine 15 mg 01/11/25 01:27 01/11/25 01:39 Ketorolac Tromethamine 15 Mg/Ml Vial IVPUSH 01/11/25 01:28 15 mg ONCE ONE Administration Medical Decision Making Medical Decision Making [facility] Narrative: 74-year-old female currently be treated for known dental abscess, with a history of hypothyroidism, hypertension, hyperlipidemia who presents with facial pain and headache x 4 days. Patient when seen in the emergency department 4 days ago for her dental pain, she was prescribed clindamycin. Her symptoms have progressed, she is having sinus pain and pressure, nasal congestion, postnasal drip and sore throat. Patient has pending tooth extraction scheduled for tomorrow. Denies fever. Problem: Known dental infection History: Per patient I have considered the following differential diagnoses: Viral syndrome, seasonal allergies, bacterial sinusitis, osteomyelitis/progression of dental infection Plan: I do believe the patient likely a sinusitis given the constellation of her symptoms, she certainly is congested, both TMs are dull with serous otitis, We will be obtaining imaging of the sinuses, giving Toradol for her discomfort, she received the Toradol in the ER at the beginning of the week she states it was beneficial. I have independently reviewed the following tests: CT sinuses:indings: There is fluid within the maxillary sinuses. There is left maxillary sinus mucosal thickening. There is minimal fluid in the left anterior ethmoid air cells. Frontal and sphenoid sinuses are clear. Mastoids are clear. There is no bone erosion. There is no abscess. Orbits are unremarkable. IMPRESSION: Fluid and mucosal thickening primarily in the maxillary sinuses suggestive of sinusitis. Discharge Plan Discharge Clinical Impression: Sinusitis Patient Disposition: Home, Self-Care Instructions: Sinusitis (ED) Additional Instructions: You were found to have sinusitis on the CT scan. See home care instructions. Take the doxycycline as directed. Use the ketorolac as needed for pain. Follow up with your primary care provider as needed. Prescriptions: New doxycycline hyclate 100 mg capsule 100 mg PO BID Qty: 19 0RF ketorolac 10 mg tablet 10 mg PO Q8H PRN (Reason: pain) Qty: 20 0RF Rx Instructions: maximum total duration of 5 days from all oral, intranasal, or parenteral formulations. The patient received an IV form of Toradol here in the emergency department. No Action oxycodone 5 mg tablet 5 mg PO Q6H PRN (Reason: pain) 2 Days Qty: 10 0RF Rx Instructions: Partial Fill upon patient request. levothyroxine 25 mcg Tablet 25 mcg PO DAILY pantoprazole 40 mg Tablet,Delayed Release (Dr/Ec) 40 mg PO BID lisinopril-hydrochlorothiazide 10-12.5 mg Tablet 1 tab PO DAILY rosuvastatin 20 mg Tablet 20 mg PO DAILY Interventions: ED Discharge Assessment Last Done: 01/11/25 03:50 Discharge Date/Time: 01/11/25 03:51 Print Language: Georgian
[2025-01-11] MEDS: Doxycycline Monohydrate 100 MG CAPSULE PO (03:43)
[2025-01-11 03:50] VITALS: BP 150/83; PULSE 89; RESP 16; TEMP 36.8; O2SAT 98
== END 2025-01-11 03:51 | disposition home or self-care (01) ==
PROVIDERS: Emergency Provider Emergency Medicine; PCP Student in an Organized Health Care Education/Training Program
DX: J32.0 Chronic maxillary sinusitis (principal); R51.9 Headache, unspecified; I10 Essential (primary) hypertension; E78.5 Hyperlipidemia, unspecified; E03.9 Hypothyroidism, unspecified; Z79.899 Other long term (current) drug therapy; Z79.02 Long term (current) use of antithrombotics/antiplatelets
CPT/HCPCS: 70487; 96374; 99284; J1885; Q9967

== ENCOUNTER → 2025-01-11 01:27 | Outpatient (BNV) | payer MEDICARE, SELFPAY | PROVIDERS: Emergency Provider Emergency Medicine; PCP Student in an Organized Health Care Education/Training Program; Visit Provider Radiology Diagnostic Radiology | DX: J34.89 Other specified disorders of nose and nasal sinuses (principal) | CPT/HCPCS: 70487 ==

== ENCOUNTER 2025-02-14 12:24 | Outpatient (REF) | payer MEDICARE, SELFPAY ==
--- OUTSIDE RECORDS SUMMARY | 2025-02-14 12:52 | XMS_ITS | Patient Health Record ---
Author Organization [facility] Address [address] [place] [address] Care Team Providers Care Flat Knitter Helper Name Role Phone Екатерина Ware CNP Primary Care Provider Un available Danny Anna Jr Unavailable [phone] Allergies Allergen (clinical drug ingredient) Drug/Non Drug Allergy documented on EMR Reaction Allergy Type Onset Date Status Penicillin Unknown Drug Allergy Active Reason For Referral No Information Medications Medication SIG (Take, Route, Frequency, Duration) Notes Start Date End Date Status Pantoprazole Sodium 40 MG 1 Orally Twice a day Active Lisinopril-hydroCHLOROthiazi de 10-12.5 MG 1 tablet Orally Once a day for 30 day(s) Active Levothyroxine Sodium 25 MCG 1 tablet in the morning on an empty stomach Orally Once a day for 30 day(s) Active Rosuvastatin Calcium 20 MG 1 tablet Oral ly Once a day for 30 day(s) Active Immunizations Vaccine Route Administration Date Status Comme nts Influenza Unknown 07/26/2023 Administered Influenza Unknown 08/17/2018 Refused Problems Problem Type SNOMED Code ICD Code Onset Dates Problem Status W/U Status Risk Notes Problem 873700400 Colon cancer screening (Z12.11) Active confirmed Problem 919592992 History of colon polyps (Z86.010) Active confirmed Problem 054990116 Gastroesophageal reflux disease, esophagitis presence not specified (K21.9) Active confirmed Problem Gastroesophageal reflux disease with esophagitis (disorder) (086780264) Gastro-esophageal reflux disease with esophagitis, without bleeding (K21.00) Active confirmed Problem 504170443 Gastroesophageal reflux disease with esophagitis without hemorrhage (K21.00) Active confirmed Problem 12743542 Gastric intestin al metaplasia (K31.A0) Active confirmed Plan Of Treatment Future Test Test Name Order Date COLONOSCOPY 08/09/2013 UPPER GI ENDOSCOPY 08/02/2023 COLONOSCOPY 08/02/2023 UPPER GI ENDOSCOPY 10/25/2023 Insurance Providers Payer Name Payer Address Payer Phone Subscriber Number Group Number Insured Name Patient Relationship to Insured Coverage Start Date Coverage End Date MEDICARE OF [place] [address] [place] [address] [id number] ANTWON VIDAL Self - patient is the insured [employer] CLAIM[employer] [address] [place] [address] [id number] ANTWON VIDAL Self - patient is the insured Medical (General) History Medical History History ICD Code Hyperlipidemia Hypertension Colonoscopy 09/18, cecal tubular adenoma, 7 year recall, optional. IBS Osteoarthritis Osteopenia Cataracts Elevated BMI Gastroesophageal reflux disease/hiatal h ernia, EGD 09/18 no BE or HP, +GIM Surgical History Surgery Date(Month/Year) right rotator cuff knee left 04/2018
--- OUTSIDE RECORDS SUMMARY | 2025-02-14 12:52 | XMS_ITS | Patient Health Record ---
[facility] laya [facility] Address [address] [place] [address] Care Team Providers Care Ammonia Technician Name Role Phone Kurt Moffett MD Primary Care Provider Adrian Pastrana Unavailable [phone] Allergies Allergen (clinical drug ingredient) Drug/Non Drug [...] primary osteoarthritis of the ankle and/or foot (241356210) Primary osteoarthriti s, right ankle and foot (M19.071) Active confirmed Problem Localized, primary osteoarthritis of the ankle and/or foot (905371299) Primary osteoarthriti s, left ankle and foot [...] [employer] [address] [facility] [place] [address] [id number] Lou Root Self - patient is the insured [employer] [address] [place] [address] [id number] Lou Root Self - patient is the insured Medical (General) History Medical History History ICD Code osteoarthritis Hypertension thyroid Measles Mumps Chicken pox covid-19 Surgical History Surgery Date(Month/Year) right rotator cuff 2008 left knee arthroscopy 2015
--- OUTSIDE RECORDS SUMMARY | 2025-02-14 12:52 | XMS_ITS | Encounter Summary ---
Author Organization [facility] Address [address] [place] [address] Phone Care Team Providers Care Statistical Methods Professor Name Role Phone Kurt Moffett MD Primary Care Provider Encounter Details Date Type Department Care Team (Late st Contact Info) Description 06/10/2017 Procedure Pass [facility] [address] [place] [address] Social History Tobacco Use Types Packs/Day Years Used Date Smoking Tobacco: Former Smokeless Tobacco: Former Comments Unknown Sex and Gender Information Value Date Recorded Sex Assigned at Not on file Legal Sex Female 7:28 PM EST Gender Identity Not on file Sexual Orientation Not on file documented as of this encounter Plan of Treatment Not on file documented as of this encounter Visit Diagnoses Not on filedocumented in this encounter Care Teams Statistical Methods Professor Relationship Specialty Start Date End Date Kurt Moffett MD [address] [place] [address] [place] [address] PCP - General Internal Medicine 01/13/17 documented as of this encounter Additional Source Comments The information contained in this document represents components of the legal health record. It is not the complete legal health record.[facility]
== END 2025-02-14 12:25 | disposition home or self-care (01) ==
LOC: HO.MAMMO 12:24
PROVIDERS: PCP Nurse Practitioner Family; Visit Provider Nurse Practitioner Family
DX: Z12.31 Encounter for screening mammogram for malignant neoplasm of breast (principal)
CPT/HCPCS: 77063; 77067

== ENCOUNTER → 2025-02-14 12:30 | Outpatient (BNV) | payer MEDICARE, SELFPAY | PROVIDERS: PCP Nurse Practitioner Family; Visit Provider Radiology Body Imaging | DX: Z12.31 Encounter for screening mammogram for malignant neoplasm of breast (principal) | CPT/HCPCS: 77063; 77067 ==